=== PATIENT | male | born 2000 | race Caucasian/White ===

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

== ENCOUNTER 2023-08-10 16:12 | Emergency (ER) | payer MEDICAID ==
[2023-08-10 16:58] VITALS: BP 130/74; PULSE 79
[2023-08-10] MEDS ORDERED: Bacitracin Oint 1 GM U/D Packet TOP ONE (18:01)
[2023-08-10] MEDS ORDERED: Lidocaine 1% 5 ML VIAL INJECT ONE (18:01)
[2023-08-10] MEDS ORDERED: Diphtheria,Pertussis(Acell),Tetanus Vaccine 0.5 ML Syringe IM ONE (18:17)
== END 2023-08-10 18:27 | disposition home or self-care (01) ==
LOC: JP.ED 16:12
DX: S61.211A Laceration without foreign body of left index finger without damage to nail, initial encounter (principal); F17.210 Nicotine dependence, cigarettes, uncomplicated; W31.89XA Contact with other specified machinery, initial encounter
CPT/HCPCS: 12001; 99282

== ENCOUNTER 2024-02-28 15:01 | Emergency (ER) | payer MEDICAID, OTHER ==
[2024-02-28 15:39] VITALS: BP 146/78; PULSE 98
== END 2024-02-28 18:55 | disposition home or self-care (01) ==
LOC: JP.ED 15:01
DX: S92.254A Nondisplaced fracture of navicular [scaphoid] of right foot, initial encounter for closed fracture (principal); S92.224A Nondisplaced fracture of lateral cuneiform of right foot, initial encounter for closed fracture; Z87.891 Personal history of nicotine dependence; V27.49XA Other motorcycle driver injured in collision with fixed or stationary object in traffic accident, initial encounter; Y93.55 Activity, bike riding
CPT/HCPCS: 73130-26-RT; 73130-RT; 73700-RT; 99283